=== PATIENT | female | born 1945 | race Caucasian/White ===

== ENCOUNTER 2017-08-18 08:49 | Outpatient (CLI) | payer MEDICARE, OTHER ==
[2017-08-18] VITALS (9 sets, daily range): BP systolic 119–135; BP diastolic 54–74
[~2017-08-18] VITALS: Ht 157.5 cm; Wt 67.1 kg
[2017-08-18] MEDS ORDERED: NORVASC5 MG (09:16)
[2017-08-18] MEDS ORDERED: ASPIRIN325 (09:17)
[2017-08-18] MEDS ORDERED: ATORVASTATIN CA40 MG (09:18)
[2017-08-18] MEDS ORDERED: PLAVIX 75 MG TA75 M1 (09:19)
[2017-08-18] MEDS ORDERED: B12INJ (09:19)
[2017-08-18] MEDS ORDERED: LISINOPRIL10 MG (09:20)
[2017-08-18] MEDS ORDERED: LOPRESSOR25 (09:21)
[2017-08-18] MEDS ORDERED: PROBIOTIC1 EAC2 (09:22)
[2017-08-18] MEDS ORDERED: OMEPRAZOLE 20 M20 M1 (09:22)
[2017-08-18] MEDS ORDERED: STOOL SOFTENER100 M1 (09:23)
[2017-08-18] MEDS ORDERED: ALLEGRA-D 24 H1 EACH (09:25)
[2017-08-18] MEDS ORDERED: TRAMADOL 50 MG50 MG (09:28)
[2017-08-18] MEDS ORDERED: NITROGLYCERIN0.4 MG (09:29)
[2017-08-18 09:48] LABS: HEMATOCRIT 42.4 % (37.0-47.0); HEMOGLOBIN 14.3 gm/dL (12.0-15.0); MCH 31.6 pg (26.0-34.0); MCHC 33.8 g/dL (28.0-37.0); MCV 93.6 fL (80.0-100.0); RBC 4.53 mil/uL (4.20-5.00); WBC 5.7 thou/uL (4.0-11.0)
[2017-08-18 09:52] LABS: ANION GAP 9 mmol/L (7-16); BUN 16 mg/dL (7-18); CALCIUM 9.3 mg/dL (8.5-10.1); CHLORIDE 105 mmol/L (98-107); CO2 29 mmol/L (21-32); CREATININE 0.6 mg/dL (0.6-1.3); GLUCOSE 102 mg/dL (70-99); POTASSIUM 3.7 mmol/L (3.5-5.1); SODIUM 143 mmol/L (136-145)
[2017-08-18 09:54] LABS: APTT 25.2 Seconds (25.0-31.3); PROTIME 10.1 Seconds (9.20-11.50)
[2017-08-18 09:57] LABS: ALKALINE PHOSPHATASE 69 U/L (46-116); CHOLESTEROL 150 mg/dL (<200); HDL CHOLESTEROL 68 mg/dL (>40); LDL CHOLESTEROL 68 mg/dL (<100); SERUM ASSESSMENT Clear; SGOT 23 U/L (15-37); SGPT 31 U/L (30-65); TC:HDL 2.2 Ratio (Not establshd); TOTAL BILIRUBIN 0.7 mg/dL (<0.1-1.0); TOTAL PROTEIN 7.2 g/dL (6.4-8.2); TRIGLYCERIDE 71 mg/dL (<150); VLDL 14 mg/dL (<40)
--- NOTE | 2017-08-18 18:44 | EKG ---
[place] [address] ELECTROCARDIOGRAM REPORT Name: LETICIA HARDIN Room: [address]#: [id number] Admission: 08/18/17 Attend Phys: Mack Shelton MD, Discharge: Date of : 47 Report #: [id number] THIS REPORT FOR: //name// [facility] Test Date: 2017-08-18 Test Time: 09:53:23 Pat Name: LETICIA HARDIN Department: Room: Gender: F Manager User Interface: : 1945 Requested By: Mack Shelton Order Number: [id number] Yulia MD: Mack Shelton Measurements Intervals [place] Rate: 64 P: 46 [place]: 165 QRS: -6 QRSD: 139 T: 9 QT: 431 QTc: 445 Interpretive Statements Sinus rhythm Right bundle branch block No previous ECG available for comparison Electronically Signed On 08-18-2017 18:44:02 CDT by Mack Shelton [email or web address] <ELECTRONICALLY SIGNED> By: Mack Shelton MD, [facility] 08/18/17 [id number] Mack Shelton MD, FACC /EPI
--- NOTE | 2017-08-23 11:47 | CARD ---
[address] [address] CARDIAC CATH REPORT Name: LETICIA HARDIN Room: [facility] Mauricio#: [id number] Admission: 08/18/17 Attend Phys: Mack Shelton MD, Discharge: 08/18/17 Date of : 47 Report #: [id number] THIS REPORT FOR: //name// APPROVED REPORT Study performed: 08/18/2017 10:09:45 Patient Details Patient Status: Out-Patient Room #: The patient is a 72 year-old female Event Personnel Mirna Lea, Cuca Whyte Holkins, John Licensed Dispensing Optician, Madison Fajardo RN Procedures Performed Art Access - R femoral artery* Left Heart Cath w/LT [facility] [id number] CLV Indication Chest pain Risk Factors Hypercholesterolemia, Hypertension Procedure Narrative The patient was brought electively to the Cardiac Catheterization Laboratory and was prepped and draped in a sterile manner. The right femoral was infiltrated with 2% Lidocaine subcutaneous anesthesia. A [place] 6 FR sheath was inserted into the right femoral artery. Coronary angiography was performed using coronary diagnostic catheters. The right coronary system was accessed and visualized with a Diagnostic catheter. The left coronary system was accessed and visualized with a Diagnostic catheter. The left ventricle was accessed and visualized with a Diagnostic catheter. Left ventricular/Aortic Valve gradient assessed via catheter pullback. Closure device was deployed with a Fr Mynx. The patient tolerated the procedure well and there were no complications associated with the procedure. Intraoperative Conscious Sedation Sedation start time: 10:42 Case end Time: 11:01 Fentanyl 25 mcg Versed [address] [address] CARDIAC CATH REPORT Name: MARLON HARDINJESSICA Room: [facility] Mauricio#: [id number] Admission: 08/18/17 Attend Phys: Mack Shelton MD, Discharge: 08/18/17 Date of : 47 Report #: [id number] Dose: 315 mGy Contrast Type and Amount: Visipaque 110 ml Coronary Angiography The patient's coronary anatomy is right dominant. Diagnostic Cath Left Main 0% narrowing LAD 40% mid LAD narrowing Circumflex A 0% narrowing Right Coronary 20% mid vessel narrowing Left Ventriculography The left ventricle is normal in size with normal contractility. The left ventricular ejection fraction is estimated to be 60%. Left ventricular wall motion abnormalities are not present. There is no mitral insufficiency. Hemodynamics The aortic pressure is 122/47 mmHg with a mean of 77 mmHg. The left ventricular pressure is 129/1 mmHg with a mean of mmHg. The left ventricular end diastolic pressure is 12 mmHg. There was no gradient across the aortic valve upon pullback. Conclusion #1 modest coronary artery disease characterized by the following: A 40% mid LAD narrowing B 20% narrowing of the midportion of the dominant right coronary artery #2 normal left ventricular systolic function, estimated ejection fraction being 60% #3 normal left-sided hemodynamics study Recommendations Cardiac Risk Reduction Program Diagnostic Cath Approved by: Mack Shelton MD Date/Time: 08/23/17 1146 hrs. <ELECTRONICALLY SIGNED> By: Mack Shelton MD, [facility] 08/23/17 1147 1147 1147Jorey Shelton MD, [facility] /INF
== END 2017-08-18 16:00 | disposition home or self-care (01) ==
LOC: M.TBA-CV 08:49 → M.CL 08:49 → M.TBA-CV 11:13 → M.CL 16:00
PROVIDERS: Internal Medicine
DX: I25.10 Atherosclerotic heart disease of native coronary artery without angina pectoris (principal); I10 Essential (primary) hypertension; E78.00 Pure hypercholesterolemia, unspecified; Z90.49 Acquired absence of other specified parts of digestive tract; Z98.890 Other specified postprocedural states; Z86.73 Personal history of transient ischemic attack (TIA), and cerebral infarction without residual deficits; Z88.0 Allergy status to penicillin; Z88.8 Allergy status to other drugs, medicaments and biological substances; Z79.899 Other long term (current) drug therapy; Z79.82 Long term (current) use of aspirin